=== PATIENT | male | born 1985 | race African-American/Black ===

== ENCOUNTER 2022-06-07 21:08 | Emergency (ER) | payer OTHER ==
[~2022-06-07] VITALS: Ht 154.9 cm; Wt 83.9 kg
[2022-06-07 23:30] VITALS: BP 118/70; TEMP 98.9
== END 2022-06-07 23:30 | disposition home or self-care (01) ==
LOC: ED 21:08
PROC: 2W3LX1Z Immobilization of Right Lower Extremity using Splint (ICD-10-PCS; principal; 2022-06-07)
DX: S83.8X1A Sprain of other specified parts of right knee, initial encounter (principal); W18.39XA Other fall on same level, initial encounter; Y92.89 Other specified places as the place of occurrence of the external cause
CPT/HCPCS: 96372; 99283; J1885